=== PATIENT | male | born 1980 | race Caucasian/White ===

== ENCOUNTER 2021-05-09 11:31 | Emergency (ER) | payer SELFPAY ==
[2021-05-09 11:33] VITALS: BP 150/89; PULSE 99; RESP 15; TEMP 37.3; O2SAT 95; BMI 30.1
--- NOTE | 2021-05-09 11:37 | USCV_ITS ---
Sg Loya Age: 40 Gender: M : 1980 Exam Date: 05/09/2021 12:03 Ordering Phys: Ponce Mcneal MD Technologist: RENATO [place]am Location: [facility] [place] [facility] [place] Indication: PAIN PROCEDURES: Venous duplex imaging was performed in only the left lower extremity. The following venous structures were evaluated: common femoral vein, profunda vein, proximal portion of the greater saphenous vein, superficial femoral vein, and the popliteal vein. In addition, the posterior tibial and peroneal trunk were evaluated. FINDINGS: Normal 2-D Doppler and augmentation and compressibility throughout the lower extremity venous structures. Additional imaging through the proximal calf veins also reveals no thrombus. Limited evaluation of the greater saphenous vein is patent with no thrombus. There is subcutaneous left lower extremity edema noted. CONCLUSIONS No DVT left lower extremity. There is subcutaneous left lower extremity edema noted. Dr. Laura Castanon DO (Electronically Signed) Final Date: 09 May 2021 14:39 S
--- NOTE | 2021-05-09 11:38 | XR_ITS ---
WS: [id number] LEFT KNEE: 3 VIEW(S) TECHNIQUE: AP, oblique(s) and lateral. HISTORY: Fall COMPARISON: 07/19/2019 No fracture or dislocation. No joint space narrowing or osteophytes. No joint effusion. Mild soft tissue edema around the knee. There is a small suprapatellar joint effusion. XR/XR knee LT 3V* [id number] IMPRESSION: Soft tissue edema. No fracture identified.
--- NOTE | 2021-05-09 11:38 | ED_ITS ---
HPI - General Adult General: Chief complaint: Extremity Injury, Lower Stated complaint: PAIN/SWELLING L LEG & FOOT Time Seen by Provider: 05/09/21 11:35 History of Present Illness: HPI narrative: This patient is a 40-year-old male who presents to the emergency department and left knee left leg pain and swelling. Patient states 2 weeks ago was in fdc was getting up off the bunk in the [place] and felt a pop in his knee. Patient states he proceeded to be in fdc for another few days. Patient states unable to really bear weight on his left leg and now has significant swelling from his left ankle up to mid thigh. Will do medical evaluation treat as needed. Onset (ago): week(s) Location: left and lower extremity Severity: moderate Pain Consistency: constant Relieving factors: none Exacerbating factors: movement Associated symptoms: Deny chest pain, dyspnea, headache(s), nausea, rash, palpitations or vomiting Review of Systems General: Reports: 10 or more systems reviewed and unremarkable except in HPI and below Const: Denies: fever(s), chills, body aches or fatigue Eyes: Denies: change in vision or blurry vision ENMT: Denies: throat pain, hoarseness or mouth pain Card: Denies: chest pain, palpitations, irregular heart rhythm, edema, swelling of feet/ankles or lightheadedness Resp: Denies: dyspnea, productive cough, non-productive cough, wheezing or pain on inspiration GI: Denies: abdominal pain, nausea or vomiting : Denies: flank pain, dysuria, urinary frequency, urinary urgency or urinary hesitancy Musc: Reports: extremity pain, extremity swelling, joint pain, joint swelling and limited range of motion; Denies: neck pain, back pain, joint redness or joint warmth Skin/Breast: Denies: rash, pruritus, erythema or skin tenderness Neuro: Denies: headache(s), numbness in extremities or weakness in extremities Psych: Denies: anxiety or depression Physical Exam Const: COMMON NORMALS: no acute distress, average body habitus, patient oriented x3, no limitations, healthy appearing, alert and well nourished HENMT: COMMON NORMALS: normocephalic, atraumatic, hearing grossly normal bilaterally, external ears normal, EAC's normal, TM's normal bilaterally, Normal external nose present, Normal nasal mucous membranes and turbinates present, moist oral mucous membranes, oropharynx normal, dentition normal and gingiva normal HEAD & SCALP: normocephalic and atraumatic NOSE: Normal external nose present and Normal nasal mucous membranes and turbinates present [employer]IC[employer] AL EAR: Yes external ears normal EXTERNAL AUDITORY CANAL: EAC's normal TYMPANIC MEMBRANE: TM's normal bilaterally Neck/C-Spine: COMMON NORMALS: full ROM, no lymphadenopathy, supple, no meningeal signs, no JVD, Thyroid normal and No carotid bruits THYROID: Thyroid normal Chest: COMMONS NORMALS: normal inspection of the chest, normal palpation of entire chest wall, normal inspection of the breasts and normal palpation of the breasts Breast/axilla inspection: Yes normal inspection of the breasts BREAST/AXILLA PALPATION: Yes normal palpation of the breasts Resp: COMMON NORMALS: normal respiratory effort, No retractions, No use of accessory muscles, clear to auscultation bilaterally and percussion normal AUSCULTATION: clear to auscultation bilaterally PERCUSSION: percussion normal Cardio: COMMON NORMALS: no JVD, regular rate, regular rhythm, S1 normal heart sound present, S2 normal heart sound present, No gallops present (Cardio), No clicks present (Cardio), No murmurs present (Cardio), No rub (Cardio) and Peripheral pulses 2+ throughout RATE: regular rate RHYTHM: regular rhythm HEART SOUNDS: S1 normal heart sound present and S2 normal heart sound present PERIPHERAL PULSES: Peripheral pulses 2+ throughout GI: COMMON NORMALS: Normal to inspection, nondistended, normoactive bowel sounds present, Soft to palpation, non-tender, No hepatosplenomegaly present, no masses and no bruits PALPATION: Yes Soft to palpation and Yes No hepatosplenomegaly present : COMMON NORMALS: Yes no CVA tenderness BLADDER/KIDNEY EXAM: Yes no CVA tenderness Back/Pelvis: COMMON NORMALS: no CVA tenderness, thoracic and lumbar spine normal to inspection, no thoracic nor lumbar tenderness, thoraco-lumbar ROM normal and straight leg raise negative bilaterally Extremity: GENERAL: Yes calf tenderness (left), Yes edema and Yes weight- bearing difficulty LEFT LOWER EXTREMITY: Yes knee joint Left knee: Yes inspection (Edema from ankle to mid thigh) and Yes ROM (Decreased) Neuro: COMMON NORMALS: patient oriented x3 SENSORIUM/ORIENTATION: Yes alert MENINGEAL SIGNS: Yes no meningeal signs Course Reevaluation(s): Reevaluation #1: Negative evaluation in the emergency department for any DVTs. Concerning for possible ligamental injury to the left knee. Patient be placed in a knee immobilizer. Rest ice elevation and compression as instructed. Follow-up with orthopedics as instructed for outpatient evaluation and possible MRI as an outpatient. Patient states understanding patient be discharged home Time: 13:13 Vital Signs: Vital signs: Vital Signs Temperature 99.1 F 05/09/21 11:33 Pulse Rate 99 05/09/21 11:33 Respiratory Rate 15 05/09/21 11:33 Blood Pressure 150/89 05/09/21 11:33 Pulse Oximetry 95 05/09/21 11:33 MDM - General Adult MDM Narrative: Medical decision making narrative: Negative evaluation in the emergency department for any DVTs. Concerning for possible ligamental injury to the left knee. Patient be placed in a knee immobilizer. Rest ice elevation and compression as instructed. Follow-up with orthopedics as instructed for outpatient evaluation and possible MRI as an outpatient. Patient states understanding patient be discharged home Medical Records: Attestation: I reviewed the patient's medical records. Lab Data: Attestation: I reviewed the patient's lab results. Labs: Lab Results 05/09/21 05/09/21 05/09/21 Range/Units 11:54 11:54 11:54 WBC 5.7 (4.0-10.0) 10^3/ uL RBC 4.06 L (4.1-5.3) 10^6/u L Hgb 12.8 (11.7-16.6) g/dL Hct 38.4 L (42.0-52.0) % MCV 94.6 H (80-94) fL MCH 31.5 (28.0-34.0) pg MCHC 33.3 (30.0-36.0) g/dL RDW 12.1 (12.1-15.1) % Plt Count 335 (130-400) 10^3/c mm MPV 8.5 (7.4-10.4) fL Neut % (Auto) 80.0 % Lymph % (Auto) 12.9 % Daniels % (Auto) 5.3 % Eos % (Auto) 1.2 % Baso % (Auto) 0.4 % Neut # (Auto) 4.54 (1.8-7.7) 10^3/u L Lymph # (Auto) 0.7 L (0.8-4.8) 10^3/u L Daniels # (Auto) 0.3 (0.2-0.9) 10^3/u L Eos # (Auto) 0.1 (0.0-0.8) 10^3/u L Baso # (Auto) 0.0 (0.0-0.1) 10^3/u L Nucleated RBC % (a uto) 0 % Nucleated RBCs # 0.0 /100WBC PT 13.50 (12.1-14.9) SECO NDS INR 1.00 (0.8-1.2) APTT 29.8 (23.9-36.7) SECO NDS D-Dimer 2.85 H (0-0.59) ug/mIFE U Sodium 141 (136-145) mmol/L Potassium 4.4 (3.5-5.1) mmol/L Chloride 104 (98-107) mmol/L Carbon Dioxide 27 (22-29) mmol/L Anion Gap 14.4 (5-19) BUN 5 L (6-20) mg/dL Creatinine 0.7 (0.7-1.2) mg/dL GFR Calculation 123.7 (90-130) mL/min Glucose 98 (65-115) mg/dL Calculated Osmolal ity 289 (285-295) mOsm/k g Calcium 8.5 (8.5-10.5) mg/dL Total Bilirubin 0.4 (0.15-1.2) mg/dL AST 16 (0-40) U/L ALT 8 (0-41) U/L Alkaline Phosphata se 71 (40-130) IU/L Total Protein 6.7 (6.6-8.7) g/dL Albumin 3.7 (3.5-5.2) g/dL Globulin 3.0 (1.3-4.6) g/dL Imaging Data^: Xray Ortho: Attestation: I personally reviewed and interpreted this imaging study as follows: Radiologist's impression: Soft tissue edema. No fracture identified. US Vascular: Attestation: I personally reviewed and interpreted this imaging study as follows: My impression: library technician reports no DVT. Awaiting radiology report Discharge Plan Discharge Patient Disposition: Home Clinical Impression: Left knee sprain Condition: Stable Prescriptions: New diclofenac sodium 75 mg tablet,delayed release (DR/EC) 75 mg PO BID PRN (Reason: pain) Qty: 20 RF: 0 No Action ibuprofen 200 mg Tablet 800 mg PO PRN RF: 0 Prilosec OTC 20 mg Tablet,Delayed Release (Dr/Ec) 20 mg PO EVERY OTHER DAY RF: 0 Discharge Orders: Discharge ED (Routine); Ordered 05/09/21 Ordered By: Ponce Mcneal Referrals: Azael Wilson DO [Physician] - Discharge Diet: Advance as tolerated Discharge Activity: Increase activity as tolerated Patient Instructions: Opioid Safety Activity Restrictions/Additional Instructions: Knee immobilizer and crutches as instructed. Rest ice elevate knee. He will need to follow-up with orthopedics as instructed to schedule an outpatient evaluation and possible MRI of your knee. Concerning that you have ligamental injury to the left knee. Take medications for pain as instructed. If any additional medications for pain are needed you must follow-up with your primary care physician or orthopedics. Coding Level of Care Code ED Grinder Outside Diameter for Krystal Fwd Exam Comprehensive
[2021-05-09 12:13] LABS: Basophils % 0.4 %; Eosinophils # 0.1 10^3/uL (0.0-0.8); Eosinophils % 1.2 %; Hematocrit 38.4 % (42.0-52.0); Hemoglobin 12.8 g/dL (11.7-16.6); Lymphocytes # 0.7 10^3/uL (0.8-4.8); Lymphocytes % 12.9 %; Mean Corpuscular HGB Conc 33.3 g/dL (30.0-36.0); Mean Corpuscular Hemoglobin 31.5 pg (28.0-34.0); Mean Corpuscular Volume 94.6 fL (80-94); Mean Platelet Volume 8.5 fL (7.4-10.4); Monocytes # 0.3 10^3/uL (0.2-0.9); Monocytes % 5.3 %; Neutrophils # 4.54 10^3/uL (1.8-7.7); Nucleated Red Blood Cells % 0 %; Partial Thromboplastin Time 29.8 SECONDS (23.9-36.7); Platelet Count 335 10^3/cmm (130-400); Red Blood Count 4.06 10^6/uL (4.1-5.3); Red Cell Distribution Width 12.1 % (12.1-15.1); White Blood Count 5.7 10^3/uL (4.0-10.0)
[2021-05-09 12:16] LABS: D Dimer 2.85 ug/mIFEU (0-0.59)
[2021-05-09 12:22] LABS: Alanine Aminotransferase 8 U/L (0-41); Albumin Level 3.7 g/dL (3.5-5.2); Alkaline Phosphatase 71 IU/L (40-130); Anion Gap 14.4 (5-19); Aspartate Amino Transferase 16 U/L (0-40); Blood Urea Nitrogen 5 mg/dL (6-20); Calcium 8.5 mg/dL (8.5-10.5); Carbon Dioxide 27 mmol/L (22-29); Chloride 104 mmol/L (98-107); Glomerular Filtration Rate 123.7 mL/min (90-130); Glucose 98 mg/dL (65-115); Osmolality Calculated 289 mOsm/kg (285-295); Potassium 4.4 mmol/L (3.5-5.1); Sodium 141 mmol/L (136-145); Total Bilirubin 0.4 mg/dL (0.15-1.2); Total Protein 6.7 g/dL (6.6-8.7)
[2021-05-09 14:00] VITALS: BP 137/100; PULSE 89; RESP 18; O2SAT 96
== END 2021-05-09 14:05 | disposition home or self-care (01) ==
PROVIDERS: Emergency Provider Emergency Medicine
DX: S83.92XA Sprain of unspecified site of left knee, initial encounter (principal); X58.XXXA Exposure to other specified factors, initial encounter; Y92.143 Cell of prison as the place of occurrence of the external cause
CPT/HCPCS: 29530; 73562; 80053; 85025; 85378; 85610; 85730; 93971; 99283; E0114

== ENCOUNTER 2024-04-03 07:43 | Emergency (ER) | payer OTHER, SELFPAY ==
[2024-04-03 07:50] VITALS: BP 164/102; PULSE 83; RESP 18; TEMP 36.6; O2SAT 100; BMI 26.6
[2024-04-03 07:54] VITALS: BP 164/102; PULSE 83; RESP 18; O2SAT 100
--- NOTE | 2024-04-03 08:00 | ED_ITS ---
HPI - Wound/Laceration General: Chief Complaint: Wound/Laceration Stated Complaint: right arm lac Time Seen by Provider: 04/03/24 07:53 Source: patient Mode of arrival: ambulatory History of Present Illness: 43-year-old [facility] with right forearm laceration on the dorsum of the forearm. Is approximately 2 inches in length. Patient reports initially had significant bleeding. He cut it on a broken piece of glass hanging from a mirror frame. His last tetanus shot was 4 years ago. No other injuries. Onset (ago): minute(s) Extremity Location: Right: forearm Place: home Patient tetanus UTD: Yes Context: accidental Associated symptoms: Denies foreign body sensation, inability to move, nausea, numbness or pain Review of Systems GI: Denies: nausea Physical Exam Narrative: EXAM NARRATIVE: Examination of the dorsum of right forearm there is approximately 2 inch laceration full-thickness with exposed subcutaneous tissue. Neurovascularly intact. Patient is able to flex and extend at the wrist and extend his fingers without any difficulty. After an his local anesthesia applied to the wound cleaned up clot no evidence of foreign body wound irrigated no injury to subcutaneous tissue noted. Procedures Laceration Laceration 1: Site: upper extremity (Dorsum forearm) Side (If applicable): right Size (cm): 5 Description: linear Depth: simple, single layer Local Anesthetic: lidocaine 1% and with epi Amount of anesthesia used (mL): 3 Pre-repair: wound explored, irrigated extensively and deep structures intact Skin layer closed with: nylon Size (cm): 4-0 Technique: running Course Vital Signs: Vital signs: Vital Signs Temperature 97.9 F 04/03/24 07:50 Pulse Rate 83 04/03/24 07:54 Respiratory Rate 18 04/03/24 07:54 Blood Pressure 164/102 04/03/24 07:54 Pulse Oximetry 100 04/03/24 07:54 Oxygen Delivery Me thod Room Air 04/03/24 07:54 MDM - Wound/Laceration Medical Decision Making Wound closed without difficulty wound care instructions given apply topical antibiotic ointment [id number] Keflex twice daily for 5 days sutures out in 7 days No radiology studies performed this visit Discharge Plan Discharge Patient Disposition: Home Clinical Impression: Laceration Condition: Stable Prescriptions: New cephalexin 750 mg capsule 750 mg PO BID 5 Days Qty: 10 0RF No Action ibuprofen 200 mg Tablet 800 mg PO PRN Prilosec OTC 20 mg Tablet,Delayed Release (Dr/Ec) 20 mg PO EVERY OTHER DAY diclofenac sodium 75 mg tablet,delayed release (DR/EC) 75 mg PO BID PRN (Reason: pain) Qty: 20 0RF Discharge Orders: Discharge ED (Routine); Ordered 04/03/24 Ordered By: Steven Cifuentes Discharge Diet: Usual diet Discharge Activity: Resume usual activity Patient Instructions: Laceration (ED), Opioid Safety, Pain Management Activity Restrictions/Additional Instructions: Thank you for choosing [facility] for your healthcare needs today. It is very important that you follow up as instructed or that you return to the Emergency Department should you have concerns or if your condition changes or worsens in any way. You were seen today after a laceration to your right forearm this was closed with sutures. He should be removed in approximately 7 days. Recommend applying [id number] topical antibiotic ointment to the wound once daily. Also recommend a 5-day course of oral antibiotics 1 pill twice a day. Return if there is any sign of infection redness or drainage. Your tetanus was up-to-date so you you are not given another tetanus today. Coding Level of Care Code ED Meal Cooker for Krystal Zimmer
== END 2024-04-03 08:40 | disposition home or self-care (01) ==
PROVIDERS: Emergency Provider Family Medicine
DX: S51.811A Laceration without foreign body of right forearm, initial encounter (principal); W25.XXXA Contact with sharp glass, initial encounter
CPT/HCPCS: 12002; 99283

== ENCOUNTER → 2024-10-16 11:53 | Outpatient (BNVA) | payer OTHER, SELFPAY | PROVIDERS: Referring Provider Nurse Practitioner; Visit Provider Nurse Practitioner | DX: S46.211A Strain of muscle, fascia and tendon of other parts of biceps, right arm, initial encounter; M25.521 Pain in right elbow; M25.421 Effusion, right elbow; Y99.0 Civilian activity done for income or pay; X58.XXXA Exposure to other specified factors, initial encounter | CPT/HCPCS: 73080 ==

== ENCOUNTER 2024-10-16 12:46 | Outpatient (CLI) | payer OTHER, SELFPAY | END 2024-10-16 12:47 | disposition home or self-care (01) | LOC: SPT 12:47 | PROVIDERS: Visit Provider Nurse Practitioner | DX: Z46.89 Encounter for fitting and adjustment of other specified devices (principal); S46.219D Strain of muscle, fascia and tendon of other parts of biceps, unspecified arm, subsequent encounter; X58.XXXD Exposure to other specified factors, subsequent encounter | CPT/HCPCS: A4565 ==

== ENCOUNTER 2024-11-02 12:15 | Outpatient (CLI) | payer OTHER, SELFPAY ==
--- NOTE | 2024-11-02 12:30 | CT_ITS ---
WS: [id number] CT RIGHT ELBOW, NONCONTRAST HISTORY: S46.219A - Strain of muscle, fascia and tendon tear. Technique: All CT scans at [facility] use at least one of these dose optimization techniques: automated exposure control; mA and/or kV adjustment per patient size (includes targeted exams where dose is matched to clinical indication); or iterative reconstruction. DLP: 116.45 mGy.cm COMPARISON: Radiograph RIGHT elbow 10/16/2024 No acute fracture identified. No avulsion fracture at the radial tuberosity. Very small hooklike oste ophyte from the lateral humeral epicondyle. Small calcific or osseous density in the medial joint spa ce. No soft tissue masses identified. Soft tissue which does appear to be the biceps tendon as it extends to the radial tuberosity appears to be intact distally. Triceps tendon appears intact distally also. There is no joint effusion. No enlargement of the visualized muscles or edema. CT/CT elbow RT wo con* [id number] IMPRESSION: 1. No acute fracture. 2. No avulsion fracture from the radial tuberosity. 3. No joint effusion.
== END 2024-11-02 12:16 | disposition home or self-care (01) ==
PROVIDERS: Visit Provider Specialist
DX: S46.211A Strain of muscle, fascia and tendon of other parts of biceps, right arm, initial encounter (principal); M25.721 Osteophyte, right elbow; R93.89 Abnormal findings on diagnostic imaging of other specified body structures; X58.XXXA Exposure to other specified factors, initial encounter
CPT/HCPCS: 73200

== ENCOUNTER 2024-11-16 06:00 | Outpatient (RCR) | payer OTHER, SELFPAY | END 2024-12-04 23:59 | disposition home or self-care (01) | LOC: MPT 06:00 | PROVIDERS: Visit Provider Nurse Practitioner | DX: M25.521 Pain in right elbow (principal); M25.421 Effusion, right elbow; M75.21 Bicipital tendinitis, right shoulder | CPT/HCPCS: 97110; 97161 ==

== ENCOUNTER 2025-03-08 16:06 | Emergency (ER) | payer OTHER, SELFPAY ==
[2025-03-08 16:46] VITALS: BP 125/78; PULSE 90; TEMP 36.7; O2SAT 99
[2025-03-08 18:19] VITALS: BP 127/78; PULSE 85; RESP 20; TEMP 36.8; O2SAT 99
--- NOTE | 2025-03-08 18:21 | PC.NURSE ---
right leg measurement over upper thigh around raised area is 22 1/2 inches. Left thigh measured 22 inches
--- NOTE | 2025-03-08 18:28 | USR_ITS ---
PROCEDURE INFORMATION: Exam: US Duplex Right Lower Extremity Veins, Limited Exam date and time: 03/08/2025 8:04 PM Age: 44 years old Clinical indication: Pain; Leg, upper and leg, lower; Right; Additional info: Swelling pain TECHNIQUE: Imaging protocol: Real-time duplex ultrasound of the right extremity with 2-D skelton scale, color Doppler flow and spectral waveform analysis including responses to compression and other maneuvers (when performed) with image documentation. Limited exam was focused on the right lower extremity veins. COMPARISON: No relevant prior studies available. FINDINGS: Right deep veins: Unremarkable. The common femoral, femoral, proximal profunda femoral, popliteal, posterior tibial and peroneal veins are patent without thrombus. Normal Doppler waveforms. Normal compressibility and/or augmentation response. Superficial veins: Greater saphenous vein at the saphenofemoral junction is patent without thrombus. Soft tissues: Unremarkable. US/[place] [id number] IMPRESSION: No sonographic evidence of deep vein thrombosis.
--- NOTE | 2025-03-08 18:32 | USR_ITS ---
PROCEDURE INFORMATION: Exam: US Right Limited Joint or Other Non-Vascular Extremity Structure Exam date and time: 03/08/2025 8:15 PM Age: 44 years old Clinical indication: Other: Acute pain at palpable lump medial right thigh, no trauma; Additional info: Right medial thigh soft tissue mass TECHNIQUE: Imaging protocol: US right limited joint or other nonvascular extremity structure. Real-time ultrasound with image documentation. Exam focused on the area of clinical interest. COMPARISON: [place] [id number] 03/08/2025 8:04 PM FINDINGS: Soft tissues: 6.5 x 2.6 x 3.6 cm complex collection along the medial aspect of the thigh, suggestive of a hematoma. US/US soft tissue/extremity [id number] IMPRESSION: 6.5 x 2.6 x 3.6 cm complex collection along the medial aspect of the thigh, suggestive of a hematoma. Abscess could produce a similar appearance.
[2025-03-08] MEDS: ketorolac 60 mg/2 mL INJ IM (18:44)
--- NOTE | 2025-03-08 19:40 | ED_ITS ---
HPI - Extremity Problem General: Chief complaint: Extremity Problem,Nontraumatic Stated complaint: knot in R thigh area Time Seen by Provider: 03/08/25 18:17 History of Present Illness: 44-year-old male presents to the emergen cy room complaining of a tender knot in the right medial thigh. He has had it for the last 5 days. No fever sweats chills no trauma. No particular activity that seem to trigger it. No history of any DVT or PE he is not on any anticoagulants. Associated symptoms: Deny chest pain, fever(s) or rash Related Data Home Medications ?Medication ?Instructions ?Recorded ?Confirmed omeprazole magnesium 20 mg 20 mg PO EVERY OTHER DAY 11/06/24 tablet,delayed release (Prilosec OTC) Previous Rx's ?Medication ?Instructions ?Recorded shoulder sling #1 ea 10/16/24 celecoxib 100 mg capsule (Celebrex) 100 mg PO BID #60 caps 11/08/24 Allergies Allergy/AdvReac Type Severity Reaction Status Date / Time No Known Allergies Allergy Verified 03/08/25 16:50 Review of Systems Const: Denies: fever(s) or chills Card: Denies: chest pain Resp: Denies: dyspnea GI: Denies: abdominal pain : Denies: dysuria, urinary frequency or urinary urgency Musc: Denies: neck pain or back pain Skin/Breast: Denies: rash PFSH ED PFSH: Social History Smoking and tobacco/nicotine status: current every day tobacco/nicotine user (about a pack a day) Physical Exam Const: COMMON NORMALS: no acute distress GENERAL APPEARANCE: cooperative and comfortable ORIENTATION/CONSCIOUSNESS: Yes awake, Yes oriented to person, Yes oriented to place and Yes oriented to time HENMT: COMMON NORMALS: normocephalic, atraumatic and hearing grossly normal bilaterally HEAD & SCALP: normocephalic and atraumatic Resp: COMMON NORMALS: normal respiratory effort, No retractions, No use of accessory muscles and clear to auscultation bilaterally AUSCULTATION: clear to auscultation bilaterally Cardio: COMMON NORMALS: regular rate, regular rhythm and No murmurs present (Cardio) RATE: regular rate RHYTHM: regular rhythm Extremity: OTHER: Examination of the extremities bilateral lower extremities there is no edema. There is tenderness and a palpable soft tissue mass in the medial thigh of the right leg. There is approximately 8 cm x 5 L oriented longitudinally. It is nonpalpable but is exquisitely tender. There is no overlying redness or induration. Dorsalis pedis and posterior tibialis pulses are present equally bilaterally. Neurovascularly intact. Neuro: SENSORIUM/ORIENTATION: Yes oriented to person, Yes oriented to place and Yes oriented to time Skin: COMMON NORMALS: no rashes or lesions noted GENERAL SKIN EXAM: no rashes or lesions noted Course Vital Signs: Vital signs: Vital Signs Temperature 98.2 F 03/08/25 18:19 Pulse Rate 85 03/08/25 18:19 Respiratory Rate 20 H 03/08/25 18:19 Blood Pressure 127/78 03/08/25 18:19 Pulse Oximetry 99 03/08/25 18:19 Oxygen Delivery Me thod Room Air 03/08/25 18:19 MDM - Extremity (Nontraumatic) Medical Decision Making Hematoma of the right thigh there is no pseudoaneurysm no sign of DVT. Apply ice to the area avoid any heat can continue activity as tolerated [id number] Tylenol or ibuprofen as needed follow-up with primary care as needed. Medical Records I reviewed the patient's medical records. Lab Data I reviewed the patient's lab results. All radiology interpretation(s) finalized by discharge Discharge Plan Discharge Patient Disposition: Home Clinical Impression: Hematoma of right thigh Condition: Stable Prescriptions: No Action (DME) shoulder sling See Rx Instructions .Route .MEDSUPPLY Qty: 1 0RF Rx Instructions: As directed celecoxib [Celebrex] 100 mg capsule 100 mg PO BID Qty: 60 1RF Prilosec OTC 20 mg Tablet,Delayed Release (Dr/Ec) 20 mg PO EVERY OTHER DAY Discharge Orders: Discharge ED (Routine); Ordered 03/08/25 Ordered By: Steven Cifuentes Referrals: Ben Longoria DO [Primary Care Provider, Family Practice] Discharge Diet: Usual diet Discharge Activity: Increase activity as tolerated Patient Instructions: Opioid Safety, Pain Management Activity Restrictions/Additional Instructions: Thank you for choosing [facility] for your healthcare needs today. It is very important that you follow up as instructed or that you return to the Emergency Department should you have concerns or if your condition changes or worsens in any way. You were seen in the emergency room with complaints of swelling and discomfort in your right medial thigh ultrasound shows a what appears to be hematoma. This will likely resolve spontaneously but may take some time. There is no intervention needed. You can use Tylenol or ibuprofen apply ice to the area and follow-up with your primary care doctor Print Language: Omani Coding Level of Care Code ED Clinical Study Manager for Krystal Zimmer
[2025-03-08 20:47] VITALS: BP 141/67; PULSE 89; O2SAT 97
== END 2025-03-08 20:59 | disposition home or self-care (01) ==
PROVIDERS: Emergency Provider Family Medicine; PCP Family Medicine
DX: S70.11XA Contusion of right thigh, initial encounter (principal); F17.210 Nicotine dependence, cigarettes, uncomplicated; X58.XXXA Exposure to other specified factors, initial encounter
CPT/HCPCS: 76882; 93971; 96372; 99284; J1885

== ENCOUNTER 2025-05-17 12:27 | Emergency (ER) | payer OTHER, SELFPAY ==
[2025-05-17 12:28] VITALS: BP 133/72; PULSE 96; RESP 16; TEMP 36.9; O2SAT 100; BMI 24.7
--- NOTE | 2025-05-17 12:37 | XR_ITS ---
WS: [id number] XR tibia fibula LT 2V [id number] REASON FOR EXAM: Pain injury FINDINGS: Tibia and fibula are intact without fracture. No radiopaque soft tissue foreign body. XR/XR tibia fibula LT 2V [id number] IMPRESSION: No acute abnormality.
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
[2025-05-17 13:13] LABS: Hematocrit 40.5 % (37-53); Hemoglobin 14.00 g/dL (11.27-16.99); Mean Corpuscular HGB Conc 34.6 g/dL (30-55); Mean Corpuscular Hemoglobin 32.4 pg (27-33); Mean Corpuscular Volume 93.8 fl (82-101); Nucleated Red Blood Cells % 0 %; Platelet Count 247 10^3/cmm (157-399); Red Blood Count 4.32 10^6/uL (3.85-5.65); White Blood Count 7.31 10^3/uL (3.29-11.43)
[2025-05-17 13:35] LABS: Alanine Aminotransferase 23 U/L (0-41); Albumin Level 4.5 g/dL (3.5-5.2); Alcohol Level 33 mg/dL (0-10); Alkaline Phosphatase 60 U/L (40-130); Anion Gap 16.9 (5-19); Aspartate Amino Transferase 55 U/L (0-40); Blood Urea Nitrogen 20 mg/dL (6-20); Calcium 9.2 mg/dL (8.5-10.5); Carbon Dioxide 25 mmol/L (22-29); Chloride 104 mmol/L (98-107); Creatinine Clr Calc Pharmacy 86.5246; Globulin 2.7 g/dL (1.3-4.6); Glucose 79 mg/dL (65-115); Osmolality Calculated 296 mOsm/kg (285-295); Potassium 3.9 mmol/L (3.5-5.1); Sodium 142 mmol/L (136-145); Total Protein 7.2 g/dL (6.6-8.7)
[2025-05-17] MEDS: tetanus-dipt-pertussis 0.5 mL SDV IM (13:39)
== END 2025-05-17 13:40 | disposition home or self-care (01) ==
PROVIDERS: Emergency Provider Family Medicine; PCP Family Medicine
DX: S81.812A Laceration without foreign body, left lower leg, initial encounter (principal); F17.210 Nicotine dependence, cigarettes, uncomplicated; X58.XXXA Exposure to other specified factors, initial encounter
CPT/HCPCS: 36415; 73590; 80053; 80307; 85025; 90471; 90715; 99284